=== PATIENT | male | born 1990 | race Caucasian/White ===

== ENCOUNTER 2018-06-27 18:14 | Inpatient (IN) | payer MEDICAID, OTHER, SELFPAY ==
[~2018-06-27] VITALS: Ht 180.3 cm; Wt 71.8 kg
[~2018-06-27 18:14] MED LIST: BACITAB PO; CLEO300C2 PO; TRAZ-160 PO; ZOLO50TA PO
[2018-06-27 18:54] LABS: HEMOGLOBIN 17.9 g/dl (13.5-17.5); MEAN CORPUSCULAR HEMOGLOBIN 32.1 pg (27.0-33.0); MEAN CORPUSCULAR HGB CONC 36.5 g/dl (32.0-36.5); MEAN CORPUSCULAR VOLUME 87.8 fl (80.0-96.0); PLATELET COUNT, AUTOMATED 302 10^3/uL (150-450); RED BLOOD COUNT 5.58 10^6/uL (4.30-6.10); WHITE BLOOD COUNT 9.9 10^3/uL (4.0-10.0)
[2018-06-27 19:26] LABS: ACETAMINOPHEN LEVEL < 2.0 UG/ML (10.0-30.0); ALT/SGPT 22 U/L (12-78); BILIRUBIN,DIRECT 0.3 MG/DL (0.0-0.2); BILIRUBIN,TOTAL 0.8 MG/DL (0.2-1.0); BLOOD UREA NITROGEN 9 MG/DL (7-18); CALCIUM LEVEL 9.9 MG/DL (8.5-10.1); CARBON DIOXIDE LEVEL 23 MEQ/L (21-32); CHLORIDE LEVEL 103 MEQ/L (98-107); CREATININE FOR GFR 1.07 MG/DL (0.70-1.30); ETHYL ALCOHOL (ETHANOL) < 0.003 % (0.000-0.010); GLOMERULAR FILTRATION RATE > 60.0 (>60); GLUCOSE, FASTING 116 MG/DL (70-100); POTASSIUM SERUM 4.2 MEQ/L (3.5-5.1); SALICYLATE LEVEL < 1.7 MG/DL (5.0-30.0); SODIUM LEVEL 139 MEQ/L (136-145); THYROID STIMULATING HORMONE 0.513 uIU/ML (0.358-3.740); TOTAL PROTEIN 8.2 GM/DL (6.4-8.2)
[2018-06-27 20:03] LABS: AMPHETAMINES LEVEL URINE NEGATIVE (NEGATIVE); BARBITURATES URINE NEGATIVE (NEGATIVE); BENZODIAZEPINES URINE NEGATIVE (NEGATIVE); CANNABINOIDS URINE POSITIVE (NEGATIVE); COCAINE METABOLITE URINE NEGATIVE (NEGATIVE); METHADONE URINE NEGATIVE (NEGATIVE); OPIATES URINE NEGATIVE (NEGATIVE); PHENCYCLIDINE URINE NEGATIVE (NEGATIVE)
[2018-06-27] MEDS ORDERED: ACETAMINOPHEN TAB 650MG DOSE (2X325MG) PO PRN (21:30)
[2018-06-27] MEDS ORDERED: MOM 30ML SUSPENSION UDC PO PRN (21:30)
[2018-06-27] MEDS ORDERED: MAALOX 30 ML SUSP *UDC PO PRN (21:30)
[2018-06-27 22:49] VITALS: BP 129/80
[2018-06-27] MEDS: traZODone 50 MG TAB PO PRN (23:37)
[2018-06-27] MEDS ORDERED: NICOTINE 14 MG/24 HR TRANSDERMAL TD ONE (23:45)
[2018-06-28 06:42] VITALS: BP 128/85
[2018-06-28 08:55] VITALS: BP 125/85
[2018-06-28] MEDS: NICOTINE 14 MG/24 HR TRANSDERMAL TD SCH (09:31)
[2018-06-28] MEDS: PANTOPRAZOLE 40MG TAB (PROTONIX) PO SCH (09:31)
--- NOTE | 2018-06-28 10:47 | HPE ---
DATE OF ADMISSION: 06/27/2018 HISTORY OF PRESENT ILLNESS: Please refer to the psychiatric history and evaluation for further details on this admission. This examination and history is intended for medical issues which may need treatment, followup or consultation on this 28-year-old male. PRIMARY CARE PROVIDER: He has none. ALLERGIES: PENICILLIN. SOCIAL HISTORY: He is single. He does have a girlfriend. He lives with his parents. ETOH - Frequently. He drinks six beers a day at least four to five times a week. Sometimes more. He vaps. Recreational drug use - marijuana. 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 PAST SURGICAL HISTORY: PE tubes as an infant. HOME MEDICATIONS: None. FAMILY HISTORY: Noncontributory. LABORATORY STUDIES: White count 9.9, hemoglobin 17.9, hematocrit 49, platelets 302. Electrolytes are normal. BUN 9, creatinine 1.07, nonfasting glucose 116. Total bilirubin 0.8, direct bilirubin 0.3. TSH 0.513. Toxicology was positive for cannabinoids. REVIEW OF SYSTEMS: 11-systems review was done. Patient states he has been vomiting almost daily since . He says sometimes it is bright red blood. He states he has had black stools, this morning was the last time. Not on any particular medications. PHYSICAL EXAMINATION: 28-year-old cooperative male in no acute distress. Height 71 inches, weight 70.3 kg. Body mass index (BMI) 23.6 Vital signs stable. The patient is alert and oriented times three. Pupils equal and reactive to light. Extraocular movements intact. Cornea and sclera clear. Conjunctiva normal. No facial asymmetry. Pharynx, tongue, and gums pink and moist. Tongue is midline. Neck is supple, without lymphadenopathy. No thyromegaly. No goiter. Carotids are 2+ without bruit. Chest clear to auscultation, without wheeze or retraction. Heart is regular. Abdomen benign. Bowel sounds positive. /Rectal: Not done. Extremities show equal strength. Full range of motion. No cyanosis, clubbing or edema. Peripheral pulses equal and palpable bilaterally. Skin is warm and dry. IMPRESSION AND PLAN: 1. Psychiatric: Plan per psychiatry. 2. Patient stated history of vomiting at least once a day since , sometimes with bright red blood. States he has had black tarry stools. Will get stool for occult blood times two. Start Protonix 40 mg by mouth daily. Patient is instructed to get staff member if he has any vomiting whatsoever, and dark tarry stool. Patient verbalized agreement and understanding. Will followup on stool for occult blood and start Protonix 40 mg by mouth daily.
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
[2018-06-28] MEDS ORDERED: VENLAFAXINE **XR** 37.5 MG CAPSULE PO ONE (12:00)
[2018-06-28] MEDS: hydrOXYzine 25 MG TAB PO PRN ×2 (12:50→18:49)
[2018-06-28 18:40] VITALS: BP 138/72
[2018-06-28] MEDS: traZODone 50 MG TAB PO PRN (21:49)
[2018-06-29] MEDS: hydrOXYzine 25 MG TAB PO PRN ×3 (05:48→20:33)
[2018-06-29 06:12] VITALS: BP 148/74
[2018-06-29] MEDS: PANTOPRAZOLE 40MG TAB (PROTONIX) PO SCH (08:36)
[2018-06-29] MEDS: NICOTINE 14 MG/24 HR TRANSDERMAL TD SCH (08:36)
[2018-06-29] MEDS: VENLAFAXINE **XR** 37.5 MG CAPSULE PO SCH (08:36)
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
[2018-06-29 10:03] VITALS: BP 131/80
[2018-06-29 18:00] VITALS: BP 140/88
[2018-06-29 20:15] VITALS: BP 151/88
[2018-06-29] MEDS: traZODone 50 MG TAB PO PRN (20:33)
[2018-06-29 21:00] VITALS: BP 136/82
[2018-06-30] MEDS: hydrOXYzine 25 MG TAB PO PRN ×3 (04:48→20:44)
[2018-06-30 06:53] VITALS: BP 136/76
[2018-06-30] MEDS: PANTOPRAZOLE 40MG TAB (PROTONIX) PO SCH (08:07)
[2018-06-30] MEDS: NICOTINE 14 MG/24 HR TRANSDERMAL TD SCH (08:07)
[2018-06-30] MEDS: VENLAFAXINE **XR** 37.5 MG CAPSULE PO SCH (08:07)
[2018-06-30] MEDS ORDERED: QUEtiapine FUMARATE 50 MG TAB PO PRN (13:45)
[2018-06-30 18:07] VITALS: BP 133/89
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
[2018-07-01] MEDS: PANTOPRAZOLE 40MG TAB (PROTONIX) PO SCH (08:04)
[2018-07-01] MEDS: hydrOXYzine 25 MG TAB PO PRN ×2 (08:04→21:05)
[2018-07-01] MEDS: VENLAFAXINE **XR** 75MG CAPSULE PO SCH (08:04)
[2018-07-01] MEDS: NICOTINE 14 MG/24 HR TRANSDERMAL TD SCH (08:06)
[2018-07-01 10:17] VITALS: BP 155/91
[2018-07-01] MEDS ORDERED: hydrOXYzine 50 MG TAB PO STA (13:03)
[2018-07-01] MEDS ORDERED: QUEtiapine FUMARATE 50 MG TAB PO PRN (13:15)
[2018-07-01 18:09] VITALS: BP 146/82
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
[2018-07-02 06:48] VITALS: BP 150/71
[2018-07-02] MEDS: VENLAFAXINE **XR** 75MG CAPSULE PO SCH (08:01)
[2018-07-02] MEDS: PANTOPRAZOLE 40MG TAB (PROTONIX) PO SCH (08:01)
[2018-07-02] MEDS: NICOTINE 14 MG/24 HR TRANSDERMAL TD SCH (08:02)
[2018-07-02] MEDS: hydrOXYzine 25 MG TAB PO PRN (08:20)
[2018-07-02] MEDS ORDERED: hydrOXYzine 50 MG TAB PO ONE (15:15)
--- NOTE | 2018-07-02 15:21 | MHIPNPDOC ---
[facility] Progress Note Progress Note DATE OF SERVICE: 07/02/18 HISTORY: Patient is a 28 -year-old , male, with a history of depression, anxiety, alcohol abuse, and [facility] admission for SA by cutting neck and wrists with scissors in 03/20 who present to ED with his ex-girlfriend for worsening depression, SI with plan to tape hose to car exhaust and put in confined care, and anxiety that making him have N/V for the past two weeks and self medicating with alcohol (6 beers/daily) due to psychosocial stressors of new job, recent break-up with girlfriend, and his grandmother passing away recently. Pt denied any recent psychiatric follow-up in the ED VITAL SIGNS: See below. NEW TEST RESULTS: See below. CURRENT MEDICATIONS: See below. MENTAL STATUS EXAMINATION: General Appearance: well groomed, appears stated age, hospital scrubs/clothing Build: average Demeanor: cooperative, pleasant, anxious Eye Contact: fair Activity: anxious Behavior: cooperative, anxious Speech: clear, spontaneous, reg/rate,rhythm,volume Mood: depressed, anxious Mood anxious Affect: less constricted, appropriate, congruent, anxious Thought Process: logical/linear, depressed, intact Thought Content (Delusions): none reported, denies SI, HI, AVH Thought Content (Other): none reported, appropriate Thought Content (Aggressive): none reported Perception (Other): none reported Cognition (Impairment of): none reported Cognition(Intelligence Est.): average Oriented: Awake, Alert, Oriented times three Insight: fair Judgment: Fair Psychosis: Denies DIAGNOSES: Generalized anxiety d/o R/O Panic attack w/o agoraphobia r/o substance induced anxiety secondary alcohol alcohol used d/o depression unspecified ASSESSMENT: Patient is requesting more Atarax, he wants another 50 mgs dose today, so, I decided to increase the dose to 50 mgs Q4HP for anxiety/agitation. Patient continues to be very anxious, although he says his depression symptoms are improving MANAGEMENT PLAN: d/c Ciwa as denies alcohol withdrawal and hasn't required ativa n since admission. Medications: effexor xr 75mg daily Seroquel 150 mgs po qhs Hydroxyzyne 50 mgs PO q4h prn for anxiety TIME SPENT: 20 minutes Vital Signs Vital Signs Date Time Temp Pulse Resp B/P (MAP) Pulse Ox O2 Delivery O2 Flow Rate FiO2 07/02/18 06:48 98.4 60 16 150/71 (97) 06/27/18 20:59 98 Room Air Current Medications Current Medications Acetaminophen (Tylenol Tab) 650 mg Q6HP PRN PO HEADACHE or DISCOMFORT; Start 06/27/18 at 21:30 Al Hydrox/Mg Hydrox/Simethicone (Mylanta) 30 ml Q4HP PRN PO HEARTBURN/INDIGESTION; Start 06/27/18 at 21:30 Home Med (Med Rec Complete!) ASDIRECTED XX ; Start 06/27/18 at 22:00; Stop 06/27/18 at 22:00; Status DC Hydroxyzine HCl (Atarax) 25 mg Q6HP PRN PO ANXIETY Last administered on 07/02/18at 08:20; Start 06/28/18 at 11:15; Stop 07/02/18 at 15:14; Status DC Hydroxyzine HCl (Atarax) 50 mg Q4HP PRN PO ANXIETY; Start 07/02/18 at 15:15; Status UNV Hydroxyzine HCl (Atarax) 50 mg STAT STAT PO Last administered on 07/01/18at 13:11; Start 07/01/18 at 13:03; Stop 07/01/18 at 13:08; Status DC Magnesium Hydroxide (Milk Of Magnesia) 30 ml DAILYPRN PRN PO CONSTIPATION; Start 06/27/18 at 21:30 Nicotine (Nicoderm Cq 14mg) 1 patch DAILY TD Last administered on 06/30/18at 08:07; Start 06/28/18 at 09:00 Pantoprazole Sodium (Protonix) 40 mg DAILY PO Last administered on 07/02/18at 08:01; Start 06/28/18 at 09:00 Quetiapine Fumarate (SEROquel) 50 mg QHS PRN PO insomnia Last administered on 06/30/18at 22:28; Start 06/30/18 at 13:45; Stop 07/01/18 at 13:04; Status DC Quetiapine Fumarate (SEROquel) 150 mg QHS PRN PO insomnia Last administered on 07/01/18at 21:33; Start 07/01/18 at 13:15 Trazodone HCl (Desyrel) 50 mg QHSP PRN PO INSOMNIA Last administered on 06/29/18at 20:33; Start 06/27/18 at 21:30; Stop 06/30/18 at 13:45; Status DC Venlafaxine HCl (Effexor Xr) 37.5 mg DAILY PO Last administered on 06/30/18at 08:07; Start 06/29/18 at 09:00; Stop 06/30/18 at 15:13; Status DC Venlafaxine HCl (Effexor Xr) 75 mg DAILY PO Last administered on 07/02/18at 08:01; Start 07/01/18 at 09:00 Allergies Coded Allergies: Penicillins (Verified Allergy, Mild, RASH, 03/04/15) MARVA AGUILA MD Jul 02, 2018 15:21
[2018-07-02] MEDS ORDERED: GABAPENTIN 300 MG CAP PO ONE (16:00)
[2018-07-02] MEDS: GABAPENTIN 300 MG CAP PO SCH ×2 (16:23→21:32)
[2018-07-02 18:59] VITALS: BP 143/92
[2018-07-02] MEDS: hydrOXYzine 50 MG TAB PO PRN (20:25)
[2018-07-02] MEDS: QUEtiapine FUMARATE 200 MG TAB PO SCH (21:32)
[2018-07-03] MEDS: hydrOXYzine 50 MG TAB PO PRN ×4 (01:23→22:06)
[2018-07-03 06:26] VITALS: BP 134/77
[2018-07-03] MEDS: GABAPENTIN 300 MG CAP PO SCH ×3 (08:07→21:01)
[2018-07-03] MEDS: VENLAFAXINE 37.5 MG TAB PO SCH (08:07)
[2018-07-03] MEDS: PANTOPRAZOLE 40MG TAB (PROTONIX) PO SCH (08:07)
[2018-07-03] MEDS: NICOTINE 7 MG/24 HR TRANSDERMAL TD SCH (08:07)
[2018-07-03 18:00] VITALS: BP 150/87
[2018-07-03] MEDS: QUEtiapine FUMARATE 200 MG TAB PO SCH (21:01)
[2018-07-04 06:09] VITALS: BP 137/62
[2018-07-04] MEDS: VENLAFAXINE 37.5 MG TAB PO SCH (08:43)
[2018-07-04] MEDS: PANTOPRAZOLE 40MG TAB (PROTONIX) PO SCH (08:43)
[2018-07-04] MEDS: GABAPENTIN 300 MG CAP PO SCH (08:43)
[2018-07-04] MEDS: NICOTINE 7 MG/24 HR TRANSDERMAL TD SCH (08:44)
[2018-07-04] MEDS ORDERED: QUEtiapine FUMARATE 50 MG TAB PO SCH (09:00)
[2018-07-04] MEDS ORDERED: PANT40TA3 PO (12:11)
[2018-07-04] MEDS ORDERED: HYDRO50TAB PO (12:11)
[2018-07-04] MEDS ORDERED: GABA-843 PO (12:11)
[2018-07-04] MEDS ORDERED: QUET1TAB9 PO (12:11)
[2018-07-04] MEDS ORDERED: VENL75TA2 PO (12:11)
[2018-07-04] MEDS ORDERED: QUET5TAB PO (12:11)
[2018-07-04] MEDS ORDERED: NICO7PA TD (12:11)
--- NOTE | 2018-07-07 15:34 | MHDSPDOC ---
[facility] Discharge Summary Discharge Summary DATE OF ADMISSION: Jun 27, 2018 at 21:28 DATE OF DISCHARGE: Jul 04, 2018 at 15:27 DISCHARGE DIAGNOSES: Other specified bipolar disorder Generalized anxiety disorder Panic disorder Alcohol use disorder Marijuana use disorder R/O ETOH induced mood disorder REASON FOR ADMISSION: Chief Complaint "I'm so anxious it's making me suicidal." History of Present Illness HISTORY OF THE PRESENT ILLNESS: Patient is a 28 -year-old , male, with a history of depression, anxiety, alcohol abuse, and [facility] admission for SA by cutting neck and wrists with scissors in 03/20 who present to ED with his ex- girlfriend for worsening depression, SI with plan to tape hose to car exhaust and put in confined care, and anxiety that making him have N/V for the past two weeks and self medicating with alcohol (6 beers/daily) due to psychosocial stressors of new job, recent break-up with girlfriend, and his grandmother passing away recently. Pt denied any recent psychiatric follow-up in the ED CONSULTANTS INVOLVED: None TREATMENT AND PROGRESS ON THE UNIT : Patient was labile, he was cooperative, superficially, he was anxious and willing to be treated. he had low tolerance to frustration, he has poor impulse control, he was noticed during his last 36 hours of hospitalization, to have very labile affect. He had medication seeking behavior, he has a family with significant history for mental illness, bipolar disorder from his mother's side,. His mother is bipolar, his grandmother , he is not sure if grandma was ever diagnosed. He had 2 uncles who committed suicide (paternal uncles), his father has been treated for depression but never wants to talk about that and he has a half sister (12-13 years old) who has depression, he says. He was always very anxious and this database report writer thought he could have benefitted from a longer hospitalization because this database report writer believes he could have bipolar disorder, since he is impulsive, bentley, lashes out at people when he is frustrated, sometimes he has felt very energetic and he says he has been able to speak a lot and very rapidly. He has trouble sleeping but he has been like this for years, sleeping only 4 hours. On the last 24 hours of hospitalization he was very labile, anxious, became very angry because I was suggesting him to stay a little longer. I think several of his symptoms fulfill criteria for bipolar disorder. He admits to have a problem with alcohol abuse but he is not at the point where he will seek help. HOSPITAL COURSE: He was irritable, anxious, because he was not leaving as soon as he would have wanted but he was able to control his impulses. He was not suicidal, not homicidal and not psychotic DISCHARGE ASSESSMENT: Not suicidal, not homicidal and not psychotic at the time of his discharge MENTAL STATUS EXAMINATION ON DISCHARGE: General Appearance: well groomed, appears stated age, hospital scrubs/clothing Build: average Demeanor: cooperative, pleasant, anxious Eye Contact: fair Activity: anxious Behavior: cooperative, anxious Speech: clear, spontaneous, reg/rate,rhythm,volume Mood: depressed, anxious Mood anxious Affect: less constricted, appropriate, congruent, anxious Thought Process: logical/linear, depressed, intact Thought Content (Delusions): none reported, denies SI, HI, AVH Thought Content (Other): none reported, appropriate Thought Content (Aggressive): none reported Perception (Other): none reported Cognition (Impairment of): none reported Cognition(Intelligence Est.): average Oriented: Awake, Alert, Oriented times three Insight: fair Judgment: Fair Psychosis: Denies DIAGNOSES: Other specified bipolar disorder Generalized anxiety disorder Panic disorder Alcohol use disorder Marijuana use disorder R/O ETOH induced mood disorder MEDICATIONS ON DISCHARGE: Scheduled Gabapentin (Gabapentin) 300 Mg Cap, 300 MG PO TID for anxiety, #21 Nicotine (Nicotine Transdermal Syst) 7 Mg/24 Hr Dis, 1 PATCH TD DAILY for nicotine withdrawals, #7 Pantoprazole Sodium (Pantoprazole Sodium) 40 Mg Tab, 40 MG PO DAILY for gerd, #7 Quetiapine Fumerate (Quetiapine Fumarate) 200 Mg Tab, 200 MG PO QHS for mood/insomnia, #7 Quetiapine Fumerate (Quetiapine Fumarate) 50 Mg Tab, 50 MG PO BID@0900,1500 for mood/insomnia, #14 Venlafaxine Hydrochloride (Venlafaxine HCl) 75 Mg Tab, 150 MG PO QAM for depression/anxiety for 7 Days, #14 Scheduled PRN Hydroxyzine HCl (Hydroxyzine HCl) 50 Mg Tab, 50 MG PO Q4HP PRN for ANXIETY, #42 PLAN/FOLLOWUP ARRANGEMENTS: Follow Up Care Education Label * Chemical Dependency Appt1 * Additional information [facility] in hours Saturday - Saturday 8-[address] [place] [address] [facility] hours Saturday -Saturday [phone] [place] [address] Follow Up Care Education Label * Mental Health Appt 1 * Medical Follow Up [facility] * Established With This Provider No * Therapist NORBERTO BARRERA * Date Jul 08, 2018 * Time 08:00 * Address of Clinic or Practice [address] [place] [address] * The amount of time spent in the coordination of care for this patient was approximately 30 minutes. Vital Signs/I&Os Vital Signs Date Time Temp Pulse Resp B/P (MAP) Pulse Ox O2 Delivery O2 Flow Rate FiO2 07/04/18 06:09 97.2 57 18 137/62 (87) Laboratory Data Microbiology Microbiology 06/28/18 Stool Occult Blood (SHELLEY) - Final, Complete 06/28/18 Stool Occult Blood (SHELLEY) - Final, Complete Medications Scheduled Gabapentin (Gabapentin) 300 Mg Cap, 300 MG PO TID for anxiety, #21 Nicotine (Nicotine Transdermal Syst) 7 Mg/24 Hr Dis, 1 PATCH TD DAILY for nicotine withdrawals, #7 Pantoprazole Sodium (Pantoprazole Sodium) 40 Mg Tab, 40 MG PO DAILY for gerd, #7 Quetiapine Fumerate (Quetiapine Fumarate) 200 Mg Tab, 200 MG PO QHS for mood/insomnia, #7 Quetiapine Fumerate (Quetiapine Fumarate) 50 Mg Tab, 50 MG PO BID@0900,1500 for mood/insomnia, #14 Venlafaxine Hydrochloride (Venlafaxine HCl) 75 Mg Tab, 150 MG PO QAM for depression/anxiety for 7 Days, #14 Scheduled PRN Hydroxyzine HCl (Hydroxyzine HCl) 50 Mg Tab, 50 MG PO Q4HP PRN for ANXIETY, #42 Allergies Coded Allergies: Penicillins (Verified Allergy, Mild, RASH, 03/04/15) MARVA AGUILA MD Jul 07, 2018 15:30
== END 2018-07-04 15:27 | disposition home or self-care (01) | DRG 753 ==
LOC: M ED 18:14 → M ED INP 21:28 → M PSY 22:42
PROVIDERS: ADMIT Psychiatry & Neurology Psychiatry; ATTEND Psychiatry & Neurology Psychiatry
DX: F31.9 Bipolar disorder, unspecified (principal); F10.94 Alcohol use, unspecified with alcohol-induced mood disorder; R45.851 Suicidal ideations; F41.0 Panic disorder [episodic paroxysmal anxiety]; F10.10 Alcohol abuse, uncomplicated; F12.90 Cannabis use, unspecified, uncomplicated; F41.1 Generalized anxiety disorder; Z79.899 Other long term (current) drug therapy; Z88.0 Allergy status to penicillin

== ENCOUNTER 2018-07-23 14:54 | Observation (INO) | payer MEDICAID ==
[~2018-07-23] VITALS: Ht 180.3 cm; Wt 75.0 kg
[~2018-07-23 14:54] MED LIST changes: +GABA-843 PO; +HYDRO50TAB PO; +NICO7PA TD; +PANT40TA3 PO; +QUET1TAB9 PO; +QUET5TAB PO; +VENL75TA2 PO
[2018-07-23 15:15] LABS: BASO # 0.1 10^3/uL (0.0-0.2); BASO % 0.9 % (0.0-1.0); EOS # 0.2 10^3/uL (0.0-0.50); EOS % 2.1 % (0.0-3.0); HEMATOCRIT 47.5 % (42.0-52.0); HEMOGLOBIN 16.9 g/dl (13.5-17.5); LYMPH # 2.5 10^3/uL (1.5-6.5); LYMPH % 32.9 % (24.0-44.0); MEAN CORPUSCULAR HEMOGLOBIN 31.8 pg (27.0-33.0); MEAN CORPUSCULAR HGB CONC 35.6 g/dl (32.0-36.5); MEAN CORPUSCULAR VOLUME 89.5 fl (80.0-96.0); MONO # 0.6 10^3/uL (0.0-0.8); MONO % 7.6 % (0.0-5.0); NEUTROPHILS # 4.1 10^3/uL (1.8-7.7); PLATELET COUNT, AUTOMATED 291 10^3/uL (150-450); RED BLOOD COUNT 5.31 10^6/uL (4.30-6.10); WHITE BLOOD COUNT 7.5 10^3/uL (4.0-10.0)
[2018-07-23] MEDS ORDERED: NS 1,000 ML IV ONE ×2 (15:15→19:15)
[2018-07-23] MEDS ORDERED: ACETAMINOPHEN 650 MG SUPP PR ONE (15:15)
[2018-07-23] MEDS ORDERED: LIDOCAINE 2% 5ML JELLY UROJET TOP ONE (15:15)
[2018-07-23] MEDS ORDERED: LORazepam 2 MG/ML VIAL (J2060) IV STA ×2 (15:35→16:35)
--- NOTE | 2018-07-23 15:45 | REP ---
Portable chest x-ray: Single view. History: Drug overdose. Comparison chest x-ray: August 15, 2014. Findings: Today's view is exposed at a lower level of inspiration. The lungs are symmetrically aerated and clear however. The pleural angles are sharp. Heart size is normal. EKG electrodes and oxygen delivery tubing are seen. Impression: Relatively low level of inspiration. Otherwise no acute disease seen. Electronically Signed by Alberto North MD 07/23/2018 05:26 P
[2018-07-23 15:48] LABS: ABG BASE EXCESS -4.5 (-2.0-2.0); ABG HCO3 21.5 MEQ/L (22.0-26.0); ABG O2 SATURATION 95.3 % (95.0-99.0); ABG PARTIAL PRESSURE CO2 43.1 mmHg (35.0-45.0); ABG PARTIAL PRESSURE O2 82.5 mmHg (75.0-100.0); ABG STANDARD HCO3 20.7 MEQ/L (22.0-26.0); ABG TOTAL CO2 22.8 MEQ/L (22.0-29.0); ABG pH (ARTERIAL) 7.316 UNITS (7.350-7.450)
[2018-07-23 15:52] LABS: AMPHETAMINES LEVEL URINE NEGATIVE (NEGATIVE); BARBITURATES URINE NEGATIVE (NEGATIVE); BENZODIAZEPINES URINE NEGATIVE (NEGATIVE); CANNABINOIDS URINE POSITIVE (NEGATIVE); COCAINE METABOLITE URINE NEGATIVE (NEGATIVE); METHADONE URINE NEGATIVE (NEGATIVE); OPIATES URINE NEGATIVE (NEGATIVE); PHENCYCLIDINE URINE NEGATIVE (NEGATIVE)
[2018-07-23 16:00] LABS: ACETAMINOPHEN LEVEL < 2.0 UG/ML (10.0-30.0); ALBUMIN 4.7 GM/DL (3.2-5.2); ALT/SGPT 46 U/L (12-78); BILIRUBIN,DIRECT 0.1 MG/DL (0.0-0.2); BILIRUBIN,TOTAL 0.7 MG/DL (0.2-1.0); BLOOD UREA NITROGEN 14 MG/DL (7-18); CALCIUM LEVEL 8.8 MG/DL (8.5-10.1); CARBON DIOXIDE LEVEL 25 MEQ/L (21-32); CHLORIDE LEVEL 102 MEQ/L (98-107); CPK CREATINE PHOSPHOKINASE 202 U/L (39-308); CREATININE FOR GFR 0.91 MG/DL (0.70-1.30); GLOMERULAR FILTRATION RATE > 60.0 (>60); GLUCOSE, FASTING 90 MG/DL (70-100); POTASSIUM SERUM 3.9 MEQ/L (3.5-5.1); SALICYLATE LEVEL < 1.7 MG/DL (5.0-30.0); SODIUM LEVEL 136 MEQ/L (136-145); THYROID STIMULATING HORMONE 0.961 uIU/ML (0.358-3.740); TOTAL PROTEIN 8.4 GM/DL (6.4-8.2)
--- NOTE | 2018-07-23 16:26 | REP ---
CT Head without contrast HISTORY: Drug overdose COMPARISON: None There is no intraparenchymal hemorrhage, acute infarct, mass or midline shift. The ventricular system is normal in appearance. There is no extra cerebral collection. There is no fracture. Mucosal thickening is present in the right maxillary sinus. IMPRESSION: There is no intracranial lesion. Electronically Signed by Mak Jessica MD 07/23/2018 04:18 P
[2018-07-23] MEDS ORDERED: NEUR300C PO (20:31)
[2018-07-23] MEDS ORDERED: QUET1TAB9 PO (20:31)
[2018-07-23] MEDS ORDERED: QUET5TAB PO (20:31)
[2018-07-23] MEDS ORDERED: PANT40TA3 PO (20:31)
[2018-07-23] MEDS ORDERED: HYDR50TA70 PO (20:31)
[2018-07-23] MEDS ORDERED: NICO7DIS24 TD (20:31)
[2018-07-23] MEDS ORDERED: VENL75TA2 PO (20:31)
[2018-07-23] MEDS ORDERED: VENL150C43 PO (20:33)
--- NOTE | 2018-07-23 21:27 | ECGEPIP ---
Stationary ECG Study [facility] - ED Test Date: 2018-07-23 Pat Name: DELVIN STANTON Department: Room: - Gender: M Financial Aid Advisor: [facility] : 1990 Requested By: Jonatan Connor Order Number: [id number] Reading MD: Venecia Aaron Measurements Intervals [place] Rate: 115 P: 74 OK: 159 QRS: 66 QRSD: 106 T: 52 QT: 315 QTc: 437 Interpretive Statements SINUS TACHYCARDIA LEFT ATRIAL ENLARGEMENT INCOMPLETE RIGHT BUNDLE BRANCH BLOCK NONSPECIFIC ST ELEVATION NO PRIOR FOR COMPARISON Electronically Signed On 07-23-2018 21:27:03 EDT by Venecia Aaron
[2018-07-23] MEDS ORDERED: NS 1,000 ML IV SCH (21:39)
[2018-07-23] MEDS ORDERED: ACETAMINOPHEN TAB 650MG DOSE (2X325MG) PO PRN (21:45)
[2018-07-23] MEDS ORDERED: TETANUS/DIPHTHERIA TOX ADSORB ADULT 0.5ML SYR/VIAL (90714) IM ONE (21:45)
[2018-07-23 23:59] VITALS: BP 121/89
[2018-07-24 04:00] VITALS: BP 151/87
[2018-07-24 05:38] LABS: HEMATOCRIT 46.3 % (42.0-52.0); HEMOGLOBIN 16.5 g/dl (13.5-17.5); MEAN CORPUSCULAR HEMOGLOBIN 31.6 pg (27.0-33.0); MEAN CORPUSCULAR HGB CONC 35.6 g/dl (32.0-36.5); MEAN CORPUSCULAR VOLUME 88.7 fl (80.0-96.0); PLATELET COUNT, AUTOMATED 308 10^3/uL (150-450); RED BLOOD COUNT 5.22 10^6/uL (4.30-6.10); WHITE BLOOD COUNT 12.9 10^3/uL (4.0-10.0)
[2018-07-24 05:54] LABS: BLOOD UREA NITROGEN 9 MG/DL (7-18); CALCIUM LEVEL 8.3 MG/DL (8.5-10.1); CARBON DIOXIDE LEVEL 24 MEQ/L (21-32); CHLORIDE LEVEL 106 MEQ/L (98-107); GLOMERULAR FILTRATION RATE > 60.0 (>60); GLUCOSE, FASTING 126 MG/DL (70-100); MAGNESIUM LEVEL 1.9 MG/DL (1.8-2.4); POTASSIUM SERUM 3.6 MEQ/L (3.5-5.1); SODIUM LEVEL 138 MEQ/L (136-145)
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
[2018-07-24 08:00] VITALS: BP 146/96
[2018-07-24] MEDS ORDERED: ENOXAPARIN 40 MG/0.4 ML SYRINGE (J1650) SC SCH (09:00)
[2018-07-24] MEDS ORDERED: VENLAFAXINE **XR** 75MG CAPSULE PO SCH (09:00)
[2018-07-24] MEDS ORDERED: NICOTINE 7 MG/24 HR TRANSDERMAL TD SCH (09:00)
[2018-07-24] MEDS ORDERED: PANTOPRAZOLE 40MG TAB (PROTONIX) PO SCH (09:00)
[2018-07-24] MEDS: GABAPENTIN 300 MG CAP PO SCH ×2 (09:10→15:05)
[2018-07-24] MEDS: QUEtiapine FUMARATE 50 MG TAB PO SCH ×2 (09:16→15:05)
[2018-07-24 12:00] VITALS: BP 124/63
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
[2018-07-24] MEDS ORDERED: QUEtiapine FUMARATE 200 MG TAB PO SCH (21:00)
--- NOTE | 2018-07-25 10:55 | MHCRPDOC ---
[facility] Consultation Consultation DATE OF CONSULTATION: 07/24/18 CONSULTATION REQUESTED BY: Dr. Liu REASON FOR CONSULTATION: s/p OD RELEVANT HISTORY: Per medical admission note: "The patient is a 28-year-old male who presented to the emergency department with altered mental status. The patient was unable to provide history at this time. The history was gathered from the emergency department physical therapy and the emergency department nursing staff. Earlier today the patient had gotten into a fight with his girlfriend and took a bunch of pills, mostly Robitussin and Mucinex. The patient also apparently admitted to cutting himself on the left forearm with a knife. The patient does have a psychiatric history with suicidal attempts back in 2014. According to the nursing staff the patient did admit to suicidal ideations to them. When I was in the room the patient was unable to provide any history and was not making much sense and was slurring words when I was talking to him. The patient was recently admitted into the hospital at the end of June for a suicidal attempt and was later treated and discharged and the patient went to the health unit." Pt seen and stated he took cough medicine to get "high" b/c he was bored and denies that it was a suicide attempt. He denied that he had a fight with his girlfriend and states the last thing he remember was cleaning his home. States he didn't remember cutting his left forearm superficially and doesn't know why he did it. He denied being depressed or having current SI/HI, hallucinations, delusions. He has not follow-up with any of his treatment providers or filled his medication since d/c from [facility] 07/07/18. He is not very reliable. He is annoyed he will be admitted to [facility] for treatment and safety. PAST PSYCHIATRIC HISTORY: Previous Psychiatric Diagnosis: depression, anxiety, alcohol use d/o Previous Psychiatric Admissions: [facility] 03/2015 for SA by cutting neck and wrists with scissors, once while in the [place] for stabbing himself with a ballpoint pen Suicide Attempts: as stated above Psychiatric Follow-up: d/c 07/07/18 w/follow-up at [facility] Psychiatric medications: Gabapentin, Quetiapine 200 MG PO QHS, Quetiapine 50 MG PO BID, Venlafaxine 150 MG PO QAM PAST MEDICAL HISTORY: Alcoholic gastritis. FAMILY HISTORY: noncontributory PERSONAL AND SOCIAL HISTORY: Childhood: born and raised in [place], 2 parent home, good childhood Abuse/Trauma:denies Current Living Situation: lives alone Education:high school edu and some vocational edu Employment: [employer] from home states it's boring Social Support: parents, ex-girlfriend Legal: denies Marital: single, never , no kids SUBSTANCE ABUSE HISTORY: nicotine vaporizers alcohol. tested positive for cannabis on a urine drug screen MENTAL STATUS EXAMINATION: General Appearance: well groomed, appears stated age, hospital scubs/clothing Build: average Demeanor: very figety Eye Contact: fair Activity: anxious Behavior: cooperative, restless Speech: clear, spontaneous, reg/rate,rhythm,volume Mood: depressed, anxious Mood anxious Affect: constricted, appropriate, congruent, anxious Thought Process: logical/linear, depressed, intact Thought Content (Delusions): none reported, denies SI, HI, AVH Thought Content (Other): none reported, appropriate Thought Content (Aggressive): none reported Perception (Other): none reported Cognition (Impairment of): none reported Cognition(Intelligence Est.): average Oriented: Awake, Alert, Oriented times three Insight: fair Judgment: Fair Psychosis: Denies DIAGNOSIS: Generalized anxiety d/o R/O Panic attack w/o agoraphobia r/o substance induced anxiety secondary alcohol alcohol used d/o depression unspecified PLAN: 1. transfer [facility] Vital Signs Vital Signs Date Time Temp Pulse Resp B/P (MAP) Pulse Ox O2 Delivery O2 Flow Rate FiO2 07/24/18 12:00 97.9 67 20 124/63 (83) 97 07/23/18 19:30 Room Air Laboratory Data 24H Labs Laboratory Tests 2 07/23/18 15:04: Immature Granulocyte % (Auto) 1.5, White Blood Count 7.5, Red Blood Count 5.31, Hemoglobin 16.9, Hematocrit 47.5, Mean Corpuscular Volume 89.5, Mean Corpuscular Hemoglobin 31.8, Mean Corpuscular Hemoglobin Concent 35.6, Red Cell Distribution Width 11.7, Platelet Count 291, Neutrophils (%) (Auto) 55.0, Lymphocytes (%) (Auto) 32.9, Monocytes (%) (Auto) 7.6H, Eosinophils (%) (Auto) 2.1, Basophils (%) (Auto) 0.9, Neutrophils # (Auto) 4.1, Lymphocytes # (Auto) 2.5, Monocytes # (Auto) 0.6, Eosinophils # (Auto) 0.2, Basophils # (Auto) 0.1, Nucleated Red Blood Cells % (auto) 0.0, Anion Gap 9, Glomerular Filtration Rate > 60.0, Calcium Level 8.8, Aspartate Amino Transf (AST/SGOT) 22, Alanine Aminotransferase (ALT/SGPT) 46, Alkaline Phosphatase 65, Total Bilirubin 0.7, Direct Bilirubin 0.1, Total Creatine Kinase 202, Total Protein 8.4H, Albumin 4.7, Albumin/Globulin Ratio 1.27, Thyroid Stimulating Hormone (TSH) 0.961, S alicylates Level < 1.7L, Acetaminophen Level < 2.0L, Ethyl Alcohol Level 0.160H 07/23/18 15:20: Urine Color COLORLESS, Urine Appearance CLEAR, Urine pH 5.0, Urine Specific [place] 1.005, Urine Protein NEGATIVE, Urine Glucose (UA) NEGATIVE, Urine Ketones NEGATIVE, Urine Blood NEGATIVE, Urine Nitrite NEGATIVE, Urine Bilirubin NEGATIVE, Urine Urobilinogen 0.2, Urine Leukocyte Esterase NEGATIVE, Urine WBC (Auto) 0, Urine RBC (Auto) 1, Urine Hyaline Casts (Auto) 0, Urine Bacteria (Auto) NEGATIVE, Urine Squamous Epithelial Cells 0, Urine Mucus (Auto) SMALL, Urine Sperm (Auto) , Urine Amphetamines Screen NEGATIVE, Urine Benzodiazepines Screen NEGATIVE, Urine Opiates Screen NEGATIVE, Urine Methadone Screen NEGATIVE, Urine Barbiturates Screen NEGATIVE, Urine Phencyclidine Screen NEGATIVE, Urine Cocaine Metabolite Screen NEGATIVE, Urine Cannabinoids Screen POSITIVEH 07/23/18 15:38: Blood Gas Bicarbonate Standard 20.7L, Arterial Blood pH 7.316L, Arterial Blood Partial Pressure CO2 43.1, Arterial Blood Partial Pressure O2 82.5, Arterial Blood Total CO2 22.8, Arterial Blood HCO3 21.5L, Arterial Blood Base Excess - 4.5L, Arterial Blood Oxygen Saturation 95.3 07/24/18 05:17: Nucleated Red Blood Cells % (auto) 0.0, Anion Gap 8, Glomerular Filtration Rate > 60.0, Calcium Level 8.3L, Blood Urea Nitrogen 9, Creatinine 0.90, Sodium Level 138, Potassium Level 3.6, Chloride Level 106, Carbon Dioxide Level 24, Magnesium Level 1.9 Home Medications Current Medications Current Medications Acetaminophen (Tylenol Tab) 650 mg Q4HP PRN PO MILD PAIN OR FEVER; Start 07/23/18 at 21:45 Enoxaparin Sodium (Lovenox) 40 mg DAILY SC ; Start 07/24/18 at 09:00 Gabapentin (Neurontin) 300 mg TID PO Last administered on 07/24/18at 09:10; Start 07/24/18 at 09:00 Home Med (Med Rec Complete!) ASDIRECTED XX ; Start 07/23/18 at 20:45; Stop 07/23/18 at 20:45; Status DC Lorazepam (Ativan) 1 mg STAT STAT IV Last administered on 07/23/18at 15:35; Start 07/23/18 at 15:35; Stop 07/23/18 at 15:36; Status DC Lorazepam (Ativan) 1 mg STAT STAT IV Last administered on 07/23/18at 16:35; Start 07/23/18 at 16:35; Stop 07/23/18 at 16:36; Status DC Nicotine (Nicoderm Cq 7 Mg) 1 patch DAILY TD Last administered on 07/24/18at 09:10; Start 07/24/18 at 09:00 Pantoprazole Sodium (Protonix) 40 mg DAILY PO Last administered on 07/24/18at 09:11; Start 07/24/18 at 09:00 Quetiapine Fumarate (SEROquel) 50 mg BID@0900,1500 PO Last administered on 07/24/18at 09:16; Start 07/24/18 at 09:00 Quetiapine Fumarate (SEROquel) 200 mg QHS PO ; Start 07/24/18 at 21:00 Sodium Chloride 1,000 ml @ 80 mls/hr [id number] IV Last administered on 07/23/18at 21:39; Start 07/23/18 at 21:39; Stop 07/24/18 at 10:34; Status DC Venlafaxine HCl (Effexor Xr) 150 mg DAILY PO Last administered on 07/24/18at 09:10; Start 07/24/18 at 09:00 Scheduled Gabapentin (Neurontin) 300 Mg Cap, 300 MG PO TID, (Reported) Nicotine (Nicotine Transdermal Syst) 7 Mg/24 Hr Dis, 7 MG TD DAILY, (Reported) Pantoprazole Sodium (Pantoprazole Sodium) 40 Mg Tab, 40 MG PO DAILY, (Reported) Quetiapine Fumerate (Quetiapine Fumarate) 200 Mg Tab, 200 MG PO QHS, (Reported) Quetiapine Fumerate (Quetiapine Fumarate) 50 Mg Tab, 50 MG PO BID, (Reported) AT 0900 AND 1500 Venlafaxine Hydrochloride (Venlafaxine HCl ER) 150 Mg Cap, 150 MG PO DAILY, (Reported) Scheduled PRN Hydroxyzine HCl (Hydroxyzine HCl) 50 Mg Tab, 50 MG PO Q4H PRN for ANXIETY, (Reported) Allergies Coded Allergies: Penicillins (Verified Allergy, Mild, RASH, 03/04/15) LISETTE ALVAREZ DO Jul 24, 2018 13:15
== END 2018-07-24 16:05 ==
LOC: M ED 14:54 → EDBD 14:54 → M ED INP 22:14 → M PCU 07-24
PROVIDERS: ADMIT Internal Medicine; ATTEND Internal Medicine
DX: R45.851 Suicidal ideations (principal); T14.91XA Suicide attempt, initial encounter; T48.5X2A Poisoning by other anti-common-cold drugs, intentional self-harm, initial encounter; R00.0 Tachycardia, unspecified; F32.9 Major depressive disorder, single episode, unspecified; F41.9 Anxiety disorder, unspecified; F10.129 Alcohol abuse with intoxication, unspecified; F12.10 Cannabis abuse, uncomplicated; Z88.0 Allergy status to penicillin; Y92.89 Other specified places as the place of occurrence of the external cause; Y90.5 Blood alcohol level of 100-119 mg/100 ml
CPT/HCPCS: 36415; 36600; 51702; 70450; 71045; 80048; 80076; 80307; 81001; 82550; 82803; 83735; 84443; 85025; 85027; 90471; 90714; 93005; 93041; 96361; 96374; 96376; 99285; G0480; J2060

== ENCOUNTER 2018-07-24 14:49 | Inpatient (IN) | payer MEDICAID ==
[~2018-07-24] VITALS: Ht 180.3 cm; Wt 72.2 kg
[2018-07-24] MEDS: NICOTINE 21MG/24HR 1 EA TRANSDERMAL TD SCH (09:00)
[~2018-07-24 14:49] MED LIST changes: +HYDR50TA70 PO; +NEUR300C PO; +NICO7DIS24 TD; +VENL150C43 PO
[2018-07-24] MEDS ORDERED: MOM 30ML SUSPENSION UDC PO PRN (15:30)
[2018-07-24] MEDS ORDERED: MAALOX 30 ML SUSP *UDC PO PRN (15:30)
[2018-07-24 16:05] VITALS: BP 122/88
[2018-07-24] MEDS ORDERED: LORazepam 2 MG TAB PO PRN (16:30)
[2018-07-24] MEDS: QUEtiapine FUMARATE 50 MG TAB PO SCH (17:49)
[2018-07-24] MEDS: THIAMINE 100 MG TAB PO SCH (17:49)
[2018-07-24] MEDS: GABAPENTIN 300 MG CAP PO SCH ×2 (17:49→20:37)
[2018-07-24] MEDS ORDERED: QUEtiapine FUMARATE 200 MG TAB PO SCH (21:00)
[2018-07-25 06:59] VITALS: BP 116/63
[2018-07-25] MEDS: FOLIC ACID 1 MG TAB PO SCH (08:38)
[2018-07-25] MEDS: QUEtiapine FUMARATE 50 MG TAB PO SCH ×2 (08:38→15:32)
[2018-07-25] MEDS: MULTIVITAMINS/MINERALS THERAP 1 TAB PO SCH (08:38)
[2018-07-25] MEDS: GABAPENTIN 300 MG CAP PO SCH (08:38)
[2018-07-25] MEDS: NICOTINE 21MG/24HR 1 EA TRANSDERMAL TD SCH (08:38)
[2018-07-25] MEDS: THIAMINE 100 MG TAB PO SCH ×2 (08:38→20:41)
[2018-07-25] MEDS ORDERED: VENLAFAXINE **XR** 75MG CAPSULE PO SCH (09:00)
[2018-07-25] MEDS ORDERED: VENLAFAXINE 37.5 MG TAB PO SCH (09:00)
--- NOTE | 2018-07-25 09:21 | HPEPDOC ---
[facility] Medical History & Physical Date of Admission Jul 24, 2018 History and Physical PCP: none ATTENDING: Dr. Luz Schmid HPI: 28yoM admitted to [facility] 07/23/18-07/24/18 for OD of Mucinex, Robitussin and ETOH. Poison control was consulted, the pt was medically cleared and transferred to [facility] for unspecified depressive disorder. No acute medical complaints today. Denies any fevers, chills, weakness, fatigue, BUSH, CP, SOB, cough, palpitations, abdominal pain, N/V/D or changes in bowel or bladder habits. PAST MEDICAL HISTORY: depression. Anxiety. H/O SI, SA Self harm, cutting. substance use Alcohol use H/O Alcoholic gastritis. PAST SURGICAL HISTORY: Tubes in ears. SOCHX: Resides in: [facility] Marital Status: single Kids: none Tobacco use: Vape ETOH: 1-2 x per week 6 drinks. Illicit Drugs: Marijuana daily. IV Drug Use: Denies Tattoos done unprofessionally: Denies FAMHX: Mother: Alive, bipolar disorder Father: Alive, depression, HTN, DM Siblings:none Unexpected deaths due to medical reasons: 2 paternal uncles completed suicide. ROS: As noted in HPI, otherwise 11pt ROS of systems reviewed and remarkable only for superficial lacerations Lt forearm. Abrasion left hip area. PE: GEN: 28yoM, appears stated age. Well-nourished, well developed. No acute distress. Alert and oriented x 3. Pleasant, interactive. HEENT: Normocephalic, atraumatic. Pupils are equal, round, and reactive to light. Extraocular movements are intact. No nystagmus appreciated. Sclera are nonicteric. Conjunctiva without injection. Nose midline. Nasal turbinates without bogginess. EACs both patent BL. TMs both visualized and chinchilla with good cone of light, no bulging or erythema. No facial asymmetry. Moist mucous membranes. Dentition fair. Pharynx pink and moist, no cobblestoning. Neck supple, trachea midline. No lymphadenopathy or thyromegaly appreciated. CHEST: Regular rate and rhythm, +S1, +S2 LUNGS: Clear to auscultation bilaterally. No wheezes, rales, or rhonchi. Breathing appears symmetric and easy. Patient is speaking in full sentences. No accessory muscle use. ABD: Round, soft, non-tender, non-distended. +Bowel sounds throughout. No rebound or guarding. No costovertebral angle tenderness. EXT: Pulses 2+ bilaterally dorsalis pedis and radial. No lower extremity edema appreciated. SKIN: [place], dry, warm. Capillary refill <2sec. No rashes. Superficial lacerations noted to Left forearm, abrasion to left hip area, no drainage. NEURO: Alert and oriented x 3. Cranial nerves III-XII are intact. No focal deficits appreciated. EKG: SINUS TACHYCARDIA LEFT ATRIAL ENLARGEMENT INCOMPLETE RIGHT BUNDLE BRANCH BLOCK NONSPECIFIC ST ELEVATION NO PRIOR FOR COMPARISON Electronically Signed On 07-23-2018 21:27:03 EDT by Venecia Aaron A&P: 28yoM admitted to [facility] 07/23/18-07/24/18 for OD of Mucinex, Robitussin and ETOH. Poison control was consulted, the pt was medically cleared and transferred to [facility] for unspecified depressive disorder. 1. Psych. Plan per Psychiatry. EKG on file. 2. Nicotine dependence. Patch available. 3. Superficial lacerations, abrasion. Keep areas clean and dry. Dry dressing if needed. Apply bacitracin daily as needed. Monitor 4. Follow up with PCP on discharge. 5. Substance use. Management per psychiatry. Continue MVI, folic acid, thiamine supplements. 6. Staff member Christopher present throughout exam. Vital Signs Vital Signs Date Time Temp Pulse Resp B/P (MAP) Pulse Ox O2 Delivery O2 Flow Rate FiO2 07/25/18 06:59 58 116/63 07/25/18 06:59 98.2 12 Laboratory Data Labs 24H Item Value Date Time White Blood Count 12.9 10^3/uL H 07/24/18 0517 Red Blood Count 5.22 10^6/uL 07/24/18 0517 Hemoglobin 16.5 g/dl 07/24/18 05 Hematocrit 46.3 % 07/24/18 05 Mean Corpuscular Volume 88.7 fl 07/24/18 05 Mean Corpuscular Hemoglobin 31.6 pg 07/24/18 05 Mean Corpuscular Hemoglobin Concent 35.6 g/dl 07/24/18 05 Red Cell Distribution Width 11.6 % 07/24/18 05 Platelet Count 308 10^3/uL 07/24/18 05 Sodium Level 138 MEQ/L 07/24/18 05 Potassium Level 3.6 MEQ/L 07/24/18 05 Chloride Level 106 MEQ/L 07/24/18 05 Carbon Dioxide Level 24 MEQ/L 07/24/18 05 Anion Gap 8 MEQ/L 07/24/18 05 Blood Urea Nitrogen 9 MG/DL 07/24/18 0517 Creatinine 0.90 MG/DL 07/24/18 05 Glomerular Filtration Rate > 60.0 07/24/18 05 Fasting Glucose 126 MG/DL H 07/24/18 0517 Calcium Level 8.3 MG/DL L 07/24/18 0517 Magnesium Level 1.9 MG/DL 07/24/18 05 Thyroid Stimulating Hormone (TSH) 0.961 uIU/ML 07/23/18 1504 Lipase 71 U/L L 08/15/14 1147 Salicylates Level < 1.7 MG/DL L 07/23/18 1504 Urine Opiates Screen NEGATIVE 07/23/18 1520 Urine Methadone Screen NEGATIVE 07/23/18 1520 Acetaminophen Level < 2.0 UG/ML L 07/23/18 1504 Urine Barbiturates Screen NEGATIVE 07/23/18 1520 Urine Phencyclidine Screen NEGATIVE 07/23/18 1520 Urine Amphetamines Screen NEGATIVE 07/23/18 1520 Urine Benzodiazepines Screen NEGATIVE 07/23/18 1520 Urine Cocaine Metabolite Screen NEGATIVE 07/23/18 1520 Urine Cannabinoids Screen POSITIVE H 07/23/18 1520 Ethyl Alcohol Level 0.160 % H 07/23/18 1504 Home Medications Scheduled Gabapentin (Neurontin) 300 Mg Cap, 300 MG PO TID Nicotine (Nicotine Transdermal Syst) 7 Mg/24 Hr Dis, 7 MG TD DAILY Pantoprazole Sodium (Pantoprazole Sodium) 40 Mg Tab, 40 MG PO DAILY Quetiapine Fumerate (Quetiapine Fumarate) 200 Mg Tab, 200 MG PO QHS Quetiapine Fumerate (Quetiapine Fumarate) 50 Mg Tab, 50 MG PO BID AT 0900 AND 1500 Venlafaxine Hydrochloride (Venlafaxine HCl ER) 150 Mg Cap, 150 MG PO DAILY Scheduled PRN Hydroxyzine HCl (Hydroxyzine HCl) 50 Mg Tab, 50 MG PO Q4H PRN for ANXIETY Allergies Coded Allergies: Penicillins (Verified Allergy, Mild, RASH, 03/04/15) Madelyn Macario Jul 25, 2018 09:21
[2018-07-25] MEDS ORDERED: VENLAFAXINE **XR** 75MG CAPSULE PO ONE (11:15)
--- NOTE | 2018-07-25 11:21 | MHHPEPDOC ---
General Date Of Admission: Jul 24, 2018 Legal Status: 9.39 Chief Complaint "I was bored and wanted to get high". History of Present Illness HISTORY OF THE PRESENT ILLNESS: Patient is a 28 -year-old , male, with a history of depression and substance abuse who I saw on consult yesterday and documented: Per medical admission note: "The patient is a 28-year-old male who presented to the emergency department with altered mental status. The patient was unable to provide history at this time. The history was gathered from the emergency department physical therapy and the emergency department nursing staff. Earlier today the patient had gotten into a fight with his girlfriend and took a bunch of pills, mostly Robitussin and Mucinex. The patient also apparently admitted to cutting himself on the left forearm with a knife. The patient does have a psychiatric history with suicidal attempts back in 2014. According to the nursing staff the patient did admit to suicidal ideations to them. When I was in the room the patient was unable to provide any history and was not making much sense and was slurring words when I was talking to him. The patient was recently admitted into the hospital at the end of June for a suicidal attempt and was later treated and discharged and the patient went to the health unit." Per yesterday consutl: "Pt seen and stated he took cough medicine to get "high" b/c he was bored and denies that it was a suicide attempt. He denied that he had a fight with his girlfriend and states the last thing he remember was cleaning his home. States he didn't remember cutting his left forearm superficially and doesn't know why he did it. He denied being depressed or having current SI/HI, hallucinations, delusions. He has not follow-up with any of his treatment providers or filled his medication since d/c from [facility] 07/07/18. He is not very reliable. He is annoyed he will be admitted to [facility] for t reatment and safety." Psychiatric Review of Systems Depression (2 or more weeks): difficulty concentrating, suicidal thoughts Denise (4 or more days of): denies Psychosis: denies PTSD: denies Anxiety: situational anxiety, stressor related anxiety Anxiety/ 6 months or more of: restlessness, keyed up, personality cluster A,BC (b) Past Psychiatric History Previous Psychiatric Diagnosis: depression, anxiety, alcohol use d/o Previous Psychiatric Admissions: [facility] 03/2015 for SA by cutting neck and wrists with scissors, once while in the [place] for stabbing himself with a ballpoint pen Suicide Attempts: as stated above Psychiatric Follow-up: d/c 07/07/18 w/follow-up at [facility] Psychiatric medications: Gabapentin, Quetiapine 200 MG PO QHS, Quetiapine 50 MG PO BID, Venlafaxine 150 MG PO QAM Past Medical History Medical Problems Alcoholic gastritis. Head Injury: No Seizures: No Hospitalizations: Yes Surgeries: No Family Medical/Psychiatric HX Medical Problems noncontributory Psychiatric Disorders: No Addiction: No Suicide Attemps/Completions: No Addiction History nicotine (vapor), alcohol (bal 0.16 on admission), other (cough medicine (DXM), tested positive for cannabis on a urine drug screen) Social History Childhood: born and raised in [place], 2 parent home, good childhood Abuse/Trauma:denies Current Living Situation: lives alone Education:high school edu and some vocational edu Employment: [employer] from home states it's boring Social Support: parents, ex-girlfriend Legal: denies Marital: single, never , no kids Mental Status Examination General Appearance: unkempt, appears stated age, hospital scubs/clothing Build: average Demeanor: preoccupied (girlfriend cheating on him), very figety Eye Contact: poor Activity: anxious Behavior: cooperative, restless Speech: clear, normal volume, reg/rate,rhythm,volume Mood: depressed, anxious Mood "miserable" Affect: full, anxious Thought Process: logical/linear, depressed, intact, other (hurt by girlfriend cheating on him) Thought Content (Other): preoccupied ( girlfriend cheating on him) Thought Content (Aggressive): none reported Perception (Hallucinations): none reported Perception (Other): none reported Cognition (Impairment of): none reported Cognition(Intelligence Est.): average Oriented: Awake, Alert, Oriented times three Insight: fair Judgment: Fair Psychosis: Denies Diagnoses Generalized anxiety d/o R/O Panic attack w/o agoraphobia r/o substance induced anxiety secondary DXM alcohol/cannabis/DXM use d/o depression unspecified Assessment Pt seen and states he's "miserable and not happy with life" b/c when he was d/c [facility] 07/07 he found out his girlfriend cheated on him, he was trying to get a job, his father got angry with him and he had to clean the house, and he's broke. Now states his OD was a suicide attempt. States he didn't care if he got high or . Restarted meds on admission yesterday. States he's still waking up with panic attacks and is asking for his seroquel to be increased. Believes gabapentin in causing ED and his girlfriend "wouldn't sleep with me." Endorses passive SI, denies intent plan. Denies HI, hallucinations, delusions. Feels safe here. Initial Treatment Plan 1. Patient was admitted on a 9.37 status. 2. Complete history was obtained. 3. With patients permission, family will be contacted and database will be expanded. 4. Patients medication regimen will be reviewed and changed accordingly. 5. Patient will be provided with protected environment. 6. Patient will be treated with individual, group, and milieu therapies. 7. Patient will receive supportive psych-education. 8. Discharge planning will commence immediately. 9. Outpatient follow-up treatment will be strongly recommended. 10. The initial treatment plan will focus initially on: * Depression. * Risk for suicide. * Substance abuse. 11. increase effexor xr 225mg daily, increase seroquel 300mg qhs, d/c lan pentin, start vistaril 50mg q6hr prn anxiety ESTIMATED LENGTH OF STAY: 5-7 DAYS. TIME SPENT COUNSELING AND COORDINATING INITIAL CARE: 60 minutes. Vital Signs Vital Signs Date Time Temp Pulse Resp B/P (MAP) Pulse Ox O2 Delivery O2 Flow Rate FiO2 07/25/18 06:59 58 116/63 07/25/18 06:59 98.2 12 Medications Scheduled Gabapentin (Neurontin) 300 Mg Cap, 300 MG PO TID, (Reported) Nicotine (Nicotine Transdermal Syst) 7 Mg/24 Hr Dis, 7 MG TD DAILY, (Reported) Pantoprazole Sodium (Pantoprazole Sodium) 40 Mg Tab, 40 MG PO DAILY, (Reported) Quetiapine Fumerate (Quetiapine Fumarate) 200 Mg Tab, 200 MG PO QHS, (Reported) Quetiapine Fumerate (Quetiapine Fumarate) 50 Mg Tab, 50 MG PO BID, (Reported) AT 0900 AND 1500 Venlafaxine Hydrochloride (Venlafaxine HCl ER) 150 Mg Cap, 150 MG PO DAILY, (Reported) Scheduled PRN Hydroxyzine HCl (Hydroxyzine HCl) 50 Mg Tab, 50 MG PO Q4H PRN for ANXIETY, (Reported) Allergies Coded Allergies: Penicillins (Verified Allergy, Mild, RASH, 03/04/15) LISETTE ALVAREZ DO Jul 25, 2018 11:04 am
[2018-07-25 15:19] VITALS: BP 128/81
[2018-07-25] MEDS: hydrOXYzine 50 MG TAB PO PRN (15:32)
[2018-07-25 18:09] VITALS: BP 125/80
[2018-07-25] MEDS: QUEtiapine FUMARATE 100 MG TAB PO SCH (20:42)
[2018-07-25 21:19] VITALS: BP 125/80
[2018-07-26 06:21] VITALS: BP 116/66
[2018-07-26] MEDS: QUEtiapine FUMARATE 50 MG TAB PO SCH ×2 (08:10→15:10)
[2018-07-26] MEDS: FOLIC ACID 1 MG TAB PO SCH (08:10)
[2018-07-26] MEDS: THIAMINE 100 MG TAB PO SCH ×2 (08:11→21:24)
[2018-07-26] MEDS: NICOTINE 21MG/24HR 1 EA TRANSDERMAL TD SCH (08:11)
[2018-07-26] MEDS: VENLAFAXINE **XR** 75MG CAPSULE PO SCH (08:11)
[2018-07-26] MEDS: MULTIVITAMINS/MINERALS THERAP 1 TAB PO SCH (08:11)
[2018-07-26] MEDS: hydrOXYzine 50 MG TAB PO PRN (12:18)
[2018-07-26 12:36] VITALS: BP 140/90
[2018-07-26 18:00] VITALS: BP 128/72
[2018-07-26] MEDS: QUEtiapine FUMARATE 100 MG TAB PO SCH (21:24)
[2018-07-26 22:33] VITALS: BP 128/72
[2018-07-27 06:32] VITALS: BP 124/56
[2018-07-27] MEDS: MULTIVITAMINS/MINERALS THERAP 1 TAB PO SCH (09:02)
[2018-07-27] MEDS: NICOTINE 21MG/24HR 1 EA TRANSDERMAL TD SCH (09:02)
[2018-07-27] MEDS: FOLIC ACID 1 MG TAB PO SCH (09:02)
[2018-07-27] MEDS: QUEtiapine FUMARATE 50 MG TAB PO SCH ×2 (09:02→15:07)
[2018-07-27] MEDS: VENLAFAXINE **XR** 75MG CAPSULE PO SCH (09:02)
[2018-07-27] MEDS: THIAMINE 100 MG TAB PO SCH (09:02)
--- NOTE | 2018-07-27 15:26 | MHIPN ---
DATE: 07/26/2018 CHIEF COMPLAINT: He says he feels better. SUBJECTIVE: He is seen for followup, in the presence of staff. He says he feels a bit better, and that he slept during the day, feels more rested, appetite is okay. MENTAL STATUS EXAMINATION: He is neat. He is cooperative. He appears a bit tired, but no agitation. No psychomotor retardation as such. He is coherent. Affect is also somewhat restricted in range, but shows reactivity. He denies any suicidal thoughts or intents. Denies any thoughts of harming anyone else. Currently, no evidence of any psychosis. Cognition grossly intact. Insight and judgment are impaired. ASSESSMENT: 1. Generalized anxiety disorder by history. 2. Alcohol, cannabis, and dextromethorphan use disorder. 3. Unspecified depressive disorder. PLAN: Continue current care, observations, and medication regimen. He requested his own showers, and that is fair. He will be encouraged to participate in activities on the unit. VITAL SIGNS: Blood pressure 128/72, pulse 89, temperature 98.9.
[2018-07-27] MEDS: ACETAMINOPHEN TAB 650MG DOSE (2X325MG) PO PRN (17:58)
[2018-07-27 18:00] VITALS: BP 134/62
[2018-07-27] MEDS: hydrOXYzine 50 MG TAB PO PRN (19:07)
[2018-07-27 20:41] VITALS: BP 134/62
[2018-07-27] MEDS: QUEtiapine FUMARATE 100 MG TAB PO SCH (21:20)
--- NOTE | 2018-07-28 03:33 | MHIPN ---
DATE: 07/24/2018 CHIEF COMPLAINT: Says he feels okay. SUBJECTIVE: Seen for followup indicates that he feels okay, that he had a better night sleep, was a little warmer, but generally the room has been cold. Moods are improved, says had visitors, that went well. Appetite is okay. MENTAL STATUS EXAMINATION: Neat, cooperative. Has a broader affect than yesterday and there is no agitation. No psychomotor retardation. He denies any active suicidal thoughts or intents. No homicidal ideas or intents. Currently no evidence of any psychosis. His cognition is grossly intact. Judgment and insight remain questionable. ASSESSMENT: 1. Generalized anxiety disorder. 2. Other specified depressive disorder. PLAN: Continue current care, observations. Encourage participation in activities on unit. He will be seeing the treatment team tomorrow and further recommendations will be made. VITAL SIGNS: Blood pressure 124/56, pulse 51 and temperature 97.
[2018-07-28 06:00] VITALS: BP 110/62
[2018-07-28] MEDS: QUEtiapine FUMARATE 50 MG TAB PO SCH ×2 (08:24→14:45)
[2018-07-28] MEDS: MULTIVITAMINS/MINERALS THERAP 1 TAB PO SCH (08:25)
[2018-07-28] MEDS: VENLAFAXINE **XR** 75MG CAPSULE PO SCH (08:25)
[2018-07-28] MEDS: FOLIC ACID 1 MG TAB PO SCH (08:25)
[2018-07-28] MEDS: NICOTINE 21MG/24HR 1 EA TRANSDERMAL TD SCH (08:25)
--- NOTE | 2018-07-28 10:36 | MHIPNPDOC ---
[facility] Progress Note Progress Note DATE OF SERVICE: 07/28/18 HISTORY: Patient is a 28 -year-old , male, with a history of depression and substance abuse who I saw on consult yesterday and documented: Per medical admission note: "The patient is a 28-year-old male who presented to the emergency department with altered mental status. The patient was unable to provide history at this time. The history was gathered from the emergency department physical therapy and the emergency department nursing staff. Earlier today the patient had gotten into a fight with his girlfriend and took a bunch of pills, mostly Robitussin and Mucinex. The patient also apparently admitted to cutting himself on the left forearm with a knife. The patient does have a psychiatric history with suicidal attempts back in 2014. According to the nursing staff the patient did admit to suicidal ideations to them. When I was in the room the patient was unable to provide any history and was not making much sense and was slurring words when I was talking to him. The patient was recently admitted into the hospital at the end of June for a suicidal attempt and was later treated and discharged and the patient went to the health unit." Per yesterday consutl: "Pt seen and stated he took cough medicine to get "high" b/c he was bored and denies that it was a suicide attempt. He denied that he had a fight with his girlfriend and states the last thing he remember was cleaning his home. States he didn't remember cutting his left forearm superficially and doesn't know why he did it. He denied being depressed or having current SI/HI, hallucinations, delusions. He has not follow-up with any of his treatment providers or filled his medication since d/c from [facility] 07/07/18. He is not very reliable. He is annoyed he will be admitted to [facility] for treatment and safety." VITAL SIGNS: See below. NEW TEST RESULTS: see below CURRENT MEDICATIONS: See below. MENTAL STATUS EXAMINATION: General Appearance: clean, appears stated age, hospital scrubs/clothing Build: average Demeanor: preoccupied (girlfriend cheating on him), less fidgety Eye Contact: poor Activity: anxious Behavior: cooperative, restless Speech: clear, normal volume, reg/rate,rhythm,volume Mood: depressed, anxious Mood "better" Affect: depressed, anxious Thought Process: logical/linear, depressed, intact, other (hurt by girlfriend cheating on him) Thought Content (Other): preoccupied ( girlfriend cheating on him) Thought Content (Aggressive): none reported Perception (Hallucinations): none reported Perception (Other): none reported Cognition (Impairment of): none reported Cognition(Intelligence Est.): average Oriented: Awake, Alert, Oriented times three Insight: fair Judgment: Fair Psychosis: Denies DIAGNOSES: Generalized anxiety d/o R/O Panic attack w/o agoraphobia r/o substance induced anxiety secondary DXM alcohol/cannabis/DXM use d/o depression unspecified ASSESSMENT:Pt seen and states his mood is better but is still endorsing insomnia. States he's tolerating his medication well but feels it would be more beneficial to increase his effexor for mood and anxiety and increase seroquel for sleep. Talked about his difficult relationship with his father who he states just yells at him to "get better" and is trying to learn to cope with it as talked about the fact that his father may not know how to listen and help so not pt's fault his father yells at him but most likely has something to do with the pt's father. Denies SI, denies intent plan. Denies HI, hallucinations, delusions. Feels safe here. MANAGEMENT PLAN: continue plan Medications: effexor xr 300mg daily seroquel 400mg qhs vistaril 50mg q6hr prn anxiety TIME SPENT: 30 minutes. Vital Signs Vital Signs Date Time Temp Pulse Resp B/P (MAP) Pulse Ox O2 Delivery O2 Flow Rate FiO2 07/28/18 06:00 98.2 60 18 110/62 (78) Current Medications Current Medications Acetaminophen (Tylenol Tab) 650 mg Q6HP PRN PO HEADACHE or DISCOMFORT Last administered on 07/27/18at 17:58; Start 07/24/18 at 15:30 Al Hydrox/Mg Hydrox/Simethicone (Mylanta) 30 ml Q4HP PRN PO HEARTBURN/INDIGESTION; Start 07/24/18 at 15:30 Folic Acid (Folic Acid) 1 mg DAILY PO Last administered on 07/28/18at 08:25; Start 07/25/18 at 09:00 Gabapentin (Neurontin) 300 mg TID PO Last administered on 07/25/18 08:38; Start 07/24/18 at 16:00; Stop 07/25/18 at 11:17; Status DC Hydroxyzine HCl (Atarax) 50 mg Q6HP PRN PO ANXIETY/AGITATION Last administered on 07/27/18 19:07; Start 07/25/18 at 11:15 Lorazepam (Ativan) 2 mg ASDIRECTED PRN PO SEE PROTOCOL; Start 07/24/18 at 16:30 Magnesium Hydroxide (Milk Of Magnesia) 30 ml DAILYPRN PRN PO CONSTIPATION; Start 07/24/18 at 15:30 Multivitamins (Theragram-M) 1 tab DAILY PO Last administered on 07/28/18 08:25; Start 07/25/18 at 09:00 Nicotine (Nicoderm Cq 21mg) 1 patch DAILY TD Last administered on 07/28/18 08:25; Start 07/24/18 at 09:00 Quetiapine Fumarate (SEROquel) 50 mg BID@0900,1500 PO Last administered on 07/28 08:24; Start 07/24/18 at 15:00 Quetiapine Fumarate (SEROquel) 200 mg QHS PO Last administered on 07/24/18at 20:36; Start 07/24/18 at 21:00; Stop 07/25/18 at 11:17; Status DC Quetiapine Fumarate (SEROquel) 300 mg QHS PO Last administered on 07/27/18at 21:20; Start 07/25/18 at 21:00 Thiamine HCl (Thiamine HCl) 100 mg BID PO Last administered on 07/27/18at 09:02; Start 07/24/18 at 17:00; Stop 07/27/18 at 09:01; Status DC Venlafaxine HCl (Effexor Xr) 150 mg DAILY PO Last administered on 07/25/18 08:38; Start 07/25/18 at 09:00; Stop 07/25/18 at 11:17; Status DC Venlafaxine HCl (Effexor Xr) 225 mg DAILY PO Last administered on 07/28/18 08:25; Start 07/26/18 at 09:00 Venlafaxine HCl (Effexor) 150 mg DAILY PO ; Start 07/25/18 at 09:00; Stop 07/05 06/24 at 09:00; Status DC Allergies Coded Allergies: Penicillins (Verified Allergy, Mild, RASH, 03/04/15) LISETTE ALVAREZ DO Jul 28, 2018 9:33 am
[2018-07-28] MEDS ORDERED: VENLAFAXINE **XR** 75MG CAPSULE PO ONE (10:45)
[2018-07-28] MEDS: ACETAMINOPHEN TAB 650MG DOSE (2X325MG) PO PRN (11:25)
[2018-07-28 18:00] VITALS: BP 148/77
[2018-07-28] MEDS: QUEtiapine FUMARATE 200 MG TAB PO SCH (21:11)
[2018-07-28] MEDS: hydrOXYzine 50 MG TAB PO PRN (21:11)
[2018-07-29 06:52] VITALS: BP 119/67
[2018-07-29] MEDS: VENLAFAXINE **XR** 75MG CAPSULE PO SCH (08:16)
[2018-07-29] MEDS: QUEtiapine FUMARATE 50 MG TAB PO SCH ×2 (08:16→15:18)
[2018-07-29] MEDS: NICOTINE 21MG/24HR 1 EA TRANSDERMAL TD SCH (08:17)
--- NOTE | 2018-07-29 08:54 | MHIPNPDOC ---
[facility] Progress Note Progress Note DATE OF SERVICE: 07/29/18 HISTORY: Patient is a 28 -year-old , male, with a history of depression and substance abuse who I saw on consult yesterday and documented: Per medical admission note: "The patient is a 28-year-old male who presented to the emergency department with altered mental status. The patient was unable to provide history at this time. The history was gathered from the emergency department physical therapy and the emergency department nursing staff. Earlier today the patient had gotten into a fight with his girlfriend and took a bunch of pills, mostly Robitussin and Mucinex. The patient also apparently admitted to cutting himself on the left forearm with a knife. The patient does have a psychiatric history with suicidal attempts back in 2014. According to the nursing staff the patient did admit to suicidal ideations to them. When I was in the room the patient was unable to provide any history and was not making much sense and was slurring words when I was talking to him. The patient was recently admitted into the hospital at the end of June for a suicidal attempt and was later treated and discharged and the patient went to the health unit." Per yesterday consutl: "Pt seen and stated he took cough medicine to get "high" b/c he was bored and denies that it was a suicide attempt. He denied that he had a fight with his girlfriend and states the last thing he remember was cleaning his home. States he didn't remember cutting his left forearm superficially and doesn't know why he did it. He denied being depressed or having current SI/HI, hallucinations, delusions. He has not follow-up with any of his treatment providers or filled his medication since d/c from [facility] 07/07/18. He is not very reliable. He is annoyed he will be admitted to [facility] for treatment and safety." VITAL SIGNS: See below. NEW TEST RESULTS: see below CURRENT MEDICATIONS: See below. MENTAL STATUS EXAMINATION: General Appearance: clean, appears stated age, own clothing Build: average Demeanor: cooperative, less fidgety Eye Contact: fair Activity: less anxious Behavior: cooperative, restless Speech: clear, normal volume, reg/rate,rhythm,volume Mood: less depressed, less anxious Mood "better" Affect: less depressed, less anxious Thought Process: logical/linear, depressed, intact Thought Content (Other): none reported Thought Content (Aggressive): none reported Perception (Hallucinations): none reported Perception (Other): none reported Cognition (Impairment of): none reported Cognition(Intelligence Est.): average Oriented: Awake, Alert, Oriented times three Insight: fair Judgment: Fair Psychosis: Denies DIAGNOSES: Generalized anxiety d/o R/O Panic attack w/o agoraphobia r/o substance induced anxiety secondary DXM alcohol/cannabis/DXM use d/o depression unspecified ASSESSMENT:Pt seen and states his mood is good and denies insomnia with increase in seroquel last night. States he's participating in yoga this am and enjoying it. States he's tolerating increase in effexor xr and finding it more beneficial. Is looking forward to going home tomorrow and states he'll try to get along with his father more at home as he is living in his father's home. Denies SI, denies intent plan. Denies HI, hallucinations, delusions. Feels safe here. MANAGEMENT PLAN: continue plan Medications: effexor xr 300mg daily seroquel 400mg qhs vistaril 50mg q6hr prn anxiety TIME SPENT: 30 minutes. Vital Signs Vital Signs Date Time Temp Pulse Resp B/P (MAP) Pulse Ox O2 Delivery O2 Flow Rate FiO2 07/29/18 06:52 98.8 57 14 119/67 (84) Current Medications Current Medications Acetaminophen (Tylenol Tab) 650 mg Q6HP PRN PO HEADACHE or DISCOMFORT Last administered on 07/28/18at 11:25; Start 07/24/18 at 15:30 Al Hydrox/Mg Hydrox/Simethicone (Mylanta) 30 ml Q4HP PRN PO HEARTBURN/INDIGESTION; Start 07/24/18 at 15:30 Folic Acid (Folic Acid) 1 mg DAILY PO Last administered on 07/28/18at 08:25; Start 07/25/18 at 09:00; Stop 07/28/18 at 10:28; Status DC Gabapentin (Neurontin) 300 mg TID PO Last administered on 07/25/18at 08:38; Start 07/24/18 at 16:00; Stop 07/25/18 at 11:17; Status DC Hydroxyzine HCl (Atarax) 50 mg Q6HP PRN PO ANXIETY/AGITATION Last administered on 07/28/18 21:11; Start 07/25/18 at 11:15 Lorazepam (Ativan) 2 mg ASDIRECTED PRN PO SEE PROTOCOL; Start 07/24/18 at 16:30; Status Cancel Magnesium Hydroxide (Milk Of Magnesia) 30 ml DAILYPRN PRN PO CONSTIPATION; Start 07/24/18 at 15:30 Multivitamins (Theragram-M) 1 tab DAILY PO Last administered on 07/28/18at 08:25; Start 07/25/18 at 09:00; Stop 07/28/18 at 10:28; Status DC Nicotine (Nicoderm Cq 21mg) 1 patch DAILY TD Last administered on 07/29/18at 08:17; Start 07/24/18 at 09:00 Quetiapine Fumarate (SEROquel) 50 mg BID@0900,1500 PO Last administered on 07/29/18at 08:16; Start 07/24/18 at 15:00 Quetiapine Fumarate (SEROquel) 200 mg QHS PO Last administered on 07/24/18at 20:36; Start 07/24/18 at 21:00; Stop 07/25/18 at 11:17; Status DC Quetiapine Fumarate (SEROquel) 300 mg QHS PO Last administered on 07/27/18at 21:20; Start 07/25/18 at 21:00; Stop 07/28/18 at 10:37; Status DC Quetiapine Fumarate (SEROquel) 400 mg QHS PO Last administered on 07/28/18at 21:11; Start 07/28/18 at 21:00 Thiamine HCl (Thiamine HCl) 100 mg BID PO Last administered on 07/27/18at 09:02; Start 07/24/18 at 17:00; Stop 07/27/18 at 09:01; Status DC Venlafaxine HCl (Effexor Xr) 150 mg DAILY PO Last administered on 07/25/18at 08:38; Start 07/25/18 at 09:00; Stop 07/25/18 at 11:17; Status DC Venlafaxine HCl (Effexor Xr) 225 mg DAILY PO Last administered on 07/28/18at 08:25; Start 07/26/18 at 09:00; Stop 07/28/18 at 10:37; Status DC Venlafaxine HCl (Effexor Xr) 300 mg DAILY PO Last administered on 07/29/18at 08:16; Start 07/29/18 at 09:00 Venlafaxine HCl (Effexor) 150 mg DAILY PO ; Start 07/25/18 at 09:00; Stop 07/25/18 at 09:00; Status DC Allergies Coded Allergies: MS - Penicillins (Verified Allergy, Mild, RASH, 03/04/15) LISETTE ALVAREZ DO Jul 29, 2018 8:54 am
[2018-07-29] MEDS: ACETAMINOPHEN TAB 650MG DOSE (2X325MG) PO PRN (09:11)
[2018-07-29 18:00] VITALS: BP 139/94
[2018-07-29] MEDS: QUEtiapine FUMARATE 200 MG TAB PO SCH (21:08)
[2018-07-29] MEDS: hydrOXYzine 50 MG TAB PO PRN (21:08)
[2018-07-30] MEDS: NICOTINE 21MG/24HR 1 EA TRANSDERMAL TD SCH (08:27)
[2018-07-30] MEDS: QUEtiapine FUMARATE 50 MG TAB PO SCH (08:27)
[2018-07-30] MEDS: VENLAFAXINE **XR** 75MG CAPSULE PO SCH (08:27)
[2018-07-30] MEDS ORDERED: EFFE150C2 PO (08:37)
[2018-07-30] MEDS ORDERED: QUET1TAB9 PO (08:37)
[2018-07-30] MEDS ORDERED: HYDRO50TAB PO (08:37)
--- NOTE | 2018-07-30 08:37 | MHDSPDOC ---
[facility] Discharge Summary Discharge Summary DATE OF ADMISSION: Jul 24, 2018 at 4:04 pm DATE OF DISCHARGE: Jul 30, 2018 DISCHARGE DIAGNOSES: Generalized anxiety d/o R/O Panic attack w/o agoraphobia r/o substance induced anxiety secondary DXM alcohol/cannabis/DXM use d/o depression unspecified REASON FOR ADMISSION: Patient is a 28 -year-old , male, with a history of depression and substance abuse who I saw on consult yesterday and documented: Per medical admission note: "The patient is a 28-year-old male who presented to the emergency department with altered mental status. The patient was unable to provide history at this time. The history was gathered from the emergency department physical therapy and the emergency department nursing staff. Earlier today the patient had gotten into a fight with his girlfriend and took a bunch of pills, mostly Robitussin and Mucinex. The patient also apparently admitted to cutting himself on the left forearm with a knife. The patient does have a psychiatric history with suicidal attempts back in 2014. According to the nursing staff the patient did admit to suicidal ideations to them. When I was in the room the patient was unable to provide any history and was not making much sense and was slurring words when I was talking to him. The patient was recently admitted into the hospital at the end of June for a suicidal attempt and was later treated and discharged and the patient went to the health unit." Per yesterday consult: "Pt seen and stated he took cough medicine to get "high" b/c he was bored and denies that it was a suicide attempt. He denied that he had a fight with his girlfriend and states the last thing he remember was cleaning his home. States he didn't remember cutting his left forearm superficially and doesn't know why he did it. He denied being depressed or having current SI/HI, hallucinations, delusions. He has not follow-up with any of his treatment providers or filled his medication since d/c from [facility] 07/07/18. He is not very reliable. He is annoyed he will be admitted to [facility] for treatment and safety." CONSULTANTS INVOLVED: none TREATMENT AND PROGRESS ON THE UNIT : Pt was admitted to [facility], seen for psychiatric assessment and restarted on his outpatient medication effexor xr increased to 300mg daiy and seroquel increased to 400mg qhs. He was provided vistaril 50mg q6hr prn anxiety. Pt found his medications beneficial and tolerated them well. He attended groups daily during his stay. His symptoms improved with treatment. On day of discharge he denied depression, anxiety, insomnia, SI/HI, hallucinations, delusions. He was discharged home after family meeting with his father with follow-up at [facility]. He felt safe for discharge. DISCHARGE ASSESSMENT: Pt seen and states his mood is good and denies insomnia with seroquel last night. States he's looking forward to being discharged home today. States he's participating groups and enjoying it, finding it helpful. States he's tolerating his medication and feels it's beneficial. Denies depression, anxiety, insomnia, SI/HI, hallucinations, delusions. Feels safe to be discharged home. MENTAL STATUS EXAMINATION ON DISCHARGE: General Appearance: clean, appears stated age, own clothing Build: average Demeanor: cooperative Eye Contact: good Activity: cooperative, calm Behavior: cooperative Speech: clear, normal volume, reg/rate,rhythm,volume Mood: euthymic, full Mood "good" Affect: euthymic, full Thought Process: logical/linear, intact Thought Content (Other): none reported Thought Content (Aggressive): none reported Perception (Hallucinations): none reported Perception (Other): none reported Cognition (Impairment of): none reported Cognition(Intelligence Est.): average Oriented: Awake, Alert, Oriented times three Insight: good Judgment: good Psychosis: Denies MEDICATIONS ON DISCHARGE: effexor xr 300mg daily seroquel 400mg qhs vistaril 50mg q6hr prn anxiety PLAN/FOLLOWUP ARRANGEMENTS: D/c home with follow-up at [facility]. The amount of time spent in the coordination of care for this patient was approximately 30 minutes. Vital Signs/I&Os Vital Signs Date Time Temp Pulse Resp B/P (MAP) Pulse Ox O2 Delivery O2 Flow Rate FiO2 07/30/18 06:46 97.6 74 14 07/29/18 18:00 139/94 (109) Medications Scheduled Gabapentin (Neurontin) 300 Mg Cap, 300 MG PO TID, (Reported) Nicotine (Nicotine Transdermal Syst) 7 Mg/24 Hr Dis, 7 MG TD DAILY, (Reported) Pantoprazole Sodium (Pantoprazole Sodium) 40 Mg Tab, 40 MG PO DAILY, (Reported) Quetiapine Fumerate (Quetiapine Fumarate) 200 Mg Tab, 200 MG PO QHS, (Reported) Quetiapine Fumerate (Quetiapine Fumarate) 50 Mg Tab, 50 MG PO BID, (Reported) AT 0900 AND 1500 Venlafaxine Hydrochloride (Venlafaxine HCl ER) 150 Mg Cap, 150 MG PO DAILY, (Reported) Scheduled PRN Hydroxyzine HCl (Hydroxyzine HCl) 50 Mg Tab, 50 MG PO Q4H PRN for ANXIETY, (Reported) Allergies Coded Allergies: MS - Penicillins (Verified Allergy, Mild, RASH, 03/04/15) LISETTE ALVAREZ DO Jul 30, 2018 8:37 am
[2018-07-30] MEDS ORDERED: VENL100T PO (12:20)
== END 2018-07-30 11:00 | disposition home or self-care (01) | DRG 756 ==
LOC: M PSY 16:04
PROVIDERS: ADMIT Psychiatry & Neurology Psychiatry; ATTEND Psychiatry & Neurology Psychiatry
DX: F41.1 Generalized anxiety disorder (principal); F32.9 Major depressive disorder, single episode, unspecified; F10.10 Alcohol abuse, uncomplicated; F12.90 Cannabis use, unspecified, uncomplicated; F41.0 Panic disorder [episodic paroxysmal anxiety]; F19.94 Other psychoactive substance use, unspecified with psychoactive substance-induced mood disorder; Z88.0 Allergy status to penicillin; F17.200 Nicotine dependence, unspecified, uncomplicated; Z79.899 Other long term (current) drug therapy

== ENCOUNTER 2019-02-28 12:23 | Emergency (ER) | payer MEDICAID, OTHER ==
[~2019-02-28] VITALS: Ht 180.3 cm; Wt 66.9 kg
[2019-02-28 12:23] VITALS: BP 149/74
[~2019-02-28 12:23] MED LIST changes: +EFFE150C2 PO; +HYDR1TAB33 PO; -HYDRO50TAB PO; -QUET1TAB9 PO; +QUET200T2 PO; -TRAZ-160 PO; +TRAZ-252 PO; +VENL100T PO
== END 2019-02-28 12:52 | disposition home or self-care (01) ==
LOC: M ED 12:23
DX: R22.0 Localized swelling, mass and lump, head (principal); F33.9 Major depressive disorder, recurrent, unspecified; F41.9 Anxiety disorder, unspecified; F10.10 Alcohol abuse, uncomplicated; Z88.0 Allergy status to penicillin; F17.210 Nicotine dependence, cigarettes, uncomplicated

== ENCOUNTER 2019-03-24 06:47 | Emergency (ER) | payer OTHER ==
[~2019-03-24] VITALS: Ht 180.3 cm; Wt 66.8 kg
[2019-03-24] MEDS ORDERED: KETOROLAC 30 MG/ML VIAL (J1885) IM ONE (07:45)
[2019-03-24] MEDS ORDERED: CYCL10TA PO (07:55)
[2019-03-24] MEDS ORDERED: NAPR-837 PO (07:55)
[2019-03-24 08:06] VITALS: BP 122/67
== END 2019-03-24 08:10 | disposition home or self-care (01) ==
LOC: M ED 06:47
DX: M43.6 Torticollis (principal); Z87.891 Personal history of nicotine dependence; Z88.0 Allergy status to penicillin
CPT/HCPCS: 96372; 99283; J1885

== ENCOUNTER 2020-10-19 08:48 | Emergency (ER) | payer OTHER, SELFPAY ==
[~2020-10-19] VITALS: Ht 177.8 cm; Wt 63.7 kg
[~2020-10-19 08:48] MED LIST changes: +CYCL-707 PO; +GABA-282 PO; -GABA-843 PO; +NAPR-837 PO; +PANT40TA29 PO; -PANT40TA3 PO; +QUET50TA3 PO; -QUET5TAB PO
[2020-10-19] MEDS ORDERED: MOTR200T44 PO (08:53)
--- NOTE | 2020-10-19 09:11 | REP ---
INDICATION: PAIN COMPARISON: None. TECHNIQUE: AP and lateral views of the right forearm. FINDINGS: The osseous structures and joint spaces are intact and normal. There is no evidence for acute fracture or dislocation. Surrounding soft tissues are unremarkable. No subcutaneous emphysema or radiodense foreign body. IMPRESSION: No obvious abnormality.. No acute fracture or dislocation. <Electronically signed by Stanley Salas > 10/19/20 [id number]
[2020-10-19] MEDS ORDERED: ZITHTAB PO (09:28)
[2020-10-19] MEDS ORDERED: FLON1SPR NARES (09:29)
[2020-10-19] MEDS ORDERED: AFRI0.058 (09:29)
[2020-10-19] MEDS ORDERED: SUDA240T2 PO (09:30)
[2020-10-19] MEDS ORDERED: KETO10TAB PO (11:04)
[2020-10-19 11:14] VITALS: BP 130/69
== END 2020-10-19 11:16 | disposition home or self-care (01) ==
LOC: M ED 08:48
DX: S56.911A Strain of unspecified muscles, fascia and tendons at forearm level, right arm, initial encounter (principal); X58.XXXA Exposure to other specified factors, initial encounter; Y92.9 Unspecified place or not applicable; Y93.9 Activity, unspecified; Y99.9 Unspecified external cause status; Z88.0 Allergy status to penicillin

== ENCOUNTER → 2021-12-08 | Outpatient (CLI) | payer MEDICAID, OTHER ==
[~2021-12-08] MED LIST changes: +FLON1SPR NARES; +KETO10TAB PO; +MOTR200T44 PO; +OXYM15SP2; -QUET50TA3 PO; +QUET50TA4 PO; +SUDA240T2 PO; +ZITHTAB PO
[2021-12-08 10:01] LABS: BASO # 0.1 10^3/uL (0.0-0.2); BASO % 0.9 % (0.0-1.0); EOS # 0.1 10^3/uL (0.0-0.5); HEMOGLOBIN 16.8 g/dl (13.5-17.5); LYMPH # 1.7 10^3/uL (1.5-5.0); LYMPH % 29.4 % (24.0-44.0); MEAN CORPUSCULAR VOLUME 94.3 fl (80.0-96.0); MONO # 0.5 10^3/uL (0.0-0.8); MONO % 9.2 % (2.0-8.0); NEUTROPHILS # 3.4 10^3/uL (1.5-8.5); NEUTROPHILS % 59.3 % (36.0-66.0); PLATELET COUNT, AUTOMATED 289 10^3/uL (150-450); RED BLOOD COUNT 5.09 10^6/uL (4.30-6.10); WHITE BLOOD COUNT 5.8 10^3/uL (4.0-10.0)
[2021-12-08 10:26] LABS: HEMOGLOBIN A1c 4.7 %
[2021-12-08 11:02] LABS: ALBUMIN 4.2 GM/DL (3.2-5.2); ALT/SGPT 33 U/L (12-78); BILIRUBIN,TOTAL 0.5 MG/DL (0.2-1.0); BLOOD UREA NITROGEN 10 MG/DL (7-18); CALCIUM LEVEL 9.3 MG/DL (8.5-10.1); CARBON DIOXIDE LEVEL 29 MEQ/L (21-32); CHLORIDE LEVEL 104 MEQ/L (98-107); CHOLESTEROL LEVEL 165 MG/DL (<200); CREATININE FOR GFR 0.89 MG/DL (0.70-1.30); FREE T4 0.86 NG/DL (0.76-1.46); GLOMERULAR FILTRATION RATE > 60.0 (>60); GLUCOSE, FASTING 89 MG/DL (70-100); HDL CHOLESTEROL 73 MG/DL (>40); LDL CHOLESTEROL 73 MG/DL (<100); NON-HDL-C 92 MG/DL; POTASSIUM SERUM 4.5 MEQ/L (3.5-5.1); SODIUM LEVEL 139 MEQ/L (136-145); TOTAL PROTEIN 7.8 GM/DL (6.4-8.2); TRIGLYCERIDES LEVEL 96 MG/DL (<150)
== END ==
LOC: M LAB 09:21
PROVIDERS: ATTEND Psychiatry & Neurology Psychiatry
DX: F31.31 Bipolar disorder, current episode depressed, mild (principal); F41.1 Generalized anxiety disorder; F10.10 Alcohol abuse, uncomplicated

== ENCOUNTER 2022-02-12 08:59 | Emergency (ER) | payer MEDICAID, OTHER ==
[~2022-02-12] VITALS: Ht 180.3 cm; Wt 68.2 kg
[2022-02-12] MEDS ORDERED: GUAN1TAB16 (09:13)
[2022-02-12] MEDS ORDERED: VENL75CA47 (09:13)
[2022-02-12] MEDS ORDERED: KETOROLAC 60MG 2ML VIAL IM ONE (09:40)
[2022-02-12] MEDS ORDERED: NAPR-837 PO (09:41)
[2022-02-12] MEDS ORDERED: METH-1165 PO (09:41)
[2022-02-12 10:08] VITALS: BP 133/72
== END 2022-02-12 10:31 | disposition home or self-care (01) ==
LOC: M ED 08:59
DX: S16.1XXA Strain of muscle, fascia and tendon at neck level, initial encounter (principal); F17.200 Nicotine dependence, unspecified, uncomplicated; F12.10 Cannabis abuse, uncomplicated; Z88.0 Allergy status to penicillin; Z79.899 Other long term (current) drug therapy; Y92.9 Unspecified place or not applicable; Y93.9 Activity, unspecified
CPT/HCPCS: 96372; 99283; J1885

== ENCOUNTER → 2022-02-15 | Outpatient (CLI) | payer OTHER ==
[~2022-02-15] MED LIST changes: +GUAN1TAB16; +METH-1165 PO; +VENL75CA47
== END ==
LOC: M SOG 07:58
PROVIDERS: ATTEND Orthopaedic Surgery
DX: Z53.9 Procedure and treatment not carried out, unspecified reason (principal)